=== PATIENT | female | born 1985 | race Native Hawaiian/Other Pacific Islander ===

== ENCOUNTER 2017-03-04 21:14 | Emergency (ER) | payer OTHER ==
[2017-03-04 21:30] VITALS: BP 105/70; PULSE 92; RESP 20; O2SAT 100
[2017-03-04 21:45] VITALS: TEMP 98
[2017-03-04] MEDS ORDERED: Sodium Chloride 0.9% 1,000 ML IV STA (22:08)
[2017-03-04] MEDS ORDERED: DiphenhydrAMINE 50 mg/ml Inj IVP STA (22:08)
[2017-03-04 22:41] LABS: BASO % 0.5 % (0.0-2.0); EOS % 0.3 % (0.0-4.0); HEMATOCRIT 36.3 % (34.0-47.0); LYMPH # 2.2 K/uL (1.0-4.3); LYMPH % 33.7 % (20.0-40.0); MEAN CELL VOLUME 90.7 fl (81.0-99.0); MEAN CORPUSCULAR HEMOGLOBIN 29.8 pg (27.0-31.0); MEAN CORPUSCULAR HGB CONC 32.9 g/dL (33.0-37.0); MEAN PLATELET VOLUME 7.7 fl (7.2-11.7); MONO # 0.3 K/uL (0.0-0.8); MONO % 4.5 % (0.0-10.0); RED CELL DISTRIBUTION WIDTH 12.7 % (11.5-14.5); WHITE BLOOD COUNT 6.6 K/uL (4.8-10.8)
[2017-03-04 22:54] LABS: ALB/GLOB RATIO 1.7 (1.0-2.1); ALKALINE PHOSPHATASE 61 U/L (38-126); ALT/SGPT 36 U/L (9-52); AST/SGOT 26 U/L (14-36); BILIRUBIN,TOTAL 1.1 mg/dl (0.2-1.3); BLOOD UREA NITROGEN 10 mg/dl (7-17); CALCIUM 9.7 mg/dL (8.4-10.2); CARBON DIOXIDE 24 mmol/L (22-30); CHLORIDE 102 mmol/L (98-107); GFR AFRICAN-AMERICAN > 60; GLUCOSE,RANDOM 122 mg/dL (65-105); POTASSIUM 3.5 MMOL/L (3.6-5.0); SODIUM 137 mmol/l (132-148); TOTAL PROTEIN 7.5 G/DL (6.3-8.2)
[2017-03-04] MEDS ORDERED: DiphenhydrAMINE 50 mg/ml Inj ONE (22:58)
[2017-03-04 23:08] LABS: RBC URINE 27 /hpf (0-3); URINE BACTERIA RARE (<OCC); URINE BILIRUBIN NEGATIVE (NEGATIVE); URINE BLOOD MODERATE (NEGATIVE); URINE COLOR YELLOW (YELLOW); URINE GLUCOSE (UA) NEG (Normal); URINE KETONE 20 mg/dL (NEGATIVE); URINE LEUKOCYTE ESTERASE NEG Leu/uL (Negative); URINE PROTEIN 30 mg/dL (NEGATIVE); URINE UROBILINOGEN 0.2-1.0 mg/dL (0.2-1.0); WBC URINE 3 /hpf (0-5)
--- NOTE | 2017-03-05 00:12 | ED PDOC ---
HPI: Headache Time Seen by Provider: 03/04/17 22:12 Chief Complaint (Nursing): Headache Chief Complaint (Provider): headache History Per: Patient History/Exam Limitations: no limitations Preceeding Symptoms: Known Migraine Symptoms Associated Symptoms: Photophobia, Blurred Vision, Nausea, Vomiting Additional Complaint(s): 31F in ED for eval of headache since 3d without phothophia, phonophobia nausea and vomiting-states that she has similar TALLEY i the past, but this TALLEY unrelieved with rest. Pt admits to some dizziness. denies head injury, vision changes abd pain. no family hx of ICH, aneurysm - Risk Factors SAH Risk Factors: Nest Degree Relative(s) W/SAH, Polycystic Kidney Disease, Marfan's Syndrome, Marco-Danlos Syndrome, Neurofibromatos, Type I, Sudden Onset Of Pain Past Medical History Reviewed: Historical Data, Nursing Documentation, Vital Signs Vital Signs: Last Vital Signs Temp 98 F 03/04/17 21:45 Pulse 92 H 03/04/17 21:27 Resp 20 03/04/17 21:27 BP 105/70 03/04/17 21:27 Pulse Ox 100 03/04/17 21:27 - Medical History PMH: No Chronic Diseases - Family History Family History: States: No Known Family Hx - Home Medications Home Medications: Ambulatory Orders Medication Instructions Recorded Sumatriptan Succinate [Imitrex] 100 mg PO BID #20 tab 03/05/17 - Allergies Allergies/Adverse Reactions: Allergies Allergy/AdvReac Type Severity Reaction Status Date / Time No Known Allergies Allergy Verified 03/04/17 21:26 Review of Systems ROS Statement: Except As Marked, All Systems Reviewed And Found Negative Neurological: Positive for: Headache. 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 Ct of head to r/o ICH Medical Decision Making Medical Decision Making: Pt will get torodol IV CT of head: negative pt improved in ED and will be given imterex and advised to have neurology f.u Disposition - Clinical Impression Clinical Impression: Migraine - Patient ED Disposition Is Patient to be Admitted: No Counseled Patient/Family Regarding: Studies Performed, Diagnosis, Need For Followup, Rx Given - Disposition Referrals: [facility] [Outside] [facility] [Provider Group] [facility] [Provider Group] [facility] [Provider Group] Disposition: Routine/Home Disposition Time: 00:15 Condition: STABLE Prescriptions: Sumatriptan Succinate [Imitrex] 100 mg PO BID #20 tab Instructions: Migraine Headache (ED) Forms: [employer] Connect (Yakut)
--- NOTE | 2017-03-05 07:54 | CT ---
PROCEDURE: CT HEAD WITHOUT CONTRAST. HISTORY: severe TALLEY with vomtiing, dizziness COMPARISON: None available. TECHNIQUE: Axial computed tomography images were obtained through the head/brain without intravenous contrast. Coronal and sagittal reconstructed images. Radiation dose: Total exam DLP = 760.30 mGy-cm. This CT exam was performed using one or more of the following dose reduction techniques: Automated exposure control, adjustment of the mA and/or kV according to patient size, and/or use of iterative reconstruction technique. FINDINGS: HEMORRHAGE: No intracranial hemorrhage. BRAIN: No mass effect or edema. No atrophy or chronic microvascular ischemic changes. VENTRICLES: Unremarkable. No hydrocephalus. CALVARIUM: Unremarkable. PARANASAL SINUSES: Unremarkable as visualized. No significant inflammatory changes. MASTOID AIR CELLS: Unremarkable as visualized. No inflammatory changes. OTHER FINDINGS: None. IMPRESSION: No acute intracranial abnormalities. No significant findings to account for the clinical presentation. Concordant results (preliminary interpretation) provided by [employer]. Procedure Completed: 23:20. Preliminary ([employer]) Report: Dictated and Authenticated: 23:56. Final Interpretation: 07:52. March 05, 2017.
== END 2017-03-05 02:05 | disposition home or self-care (01) ==
LOC: H.ER 21:14
DX: G43.909 Migraine, unspecified, not intractable, without status migrainosus (principal)